=== PATIENT | male | born 1940 | race Caucasian/White ===

== ENCOUNTER 2020-05-23 12:11 | Emergency (ER) | payer MEDICARE, OTHER | END 2020-05-23 20:15 | disposition other institution (70) | LOC: FER 12:11 | DX: N17.9 Acute kidney failure, unspecified (principal); Z85.048 Personal history of other malignant neoplasm of rectum, rectosigmoid junction, and anus; Z85.46 Personal history of malignant neoplasm of prostate; Z88.2 Allergy status to sulfonamides; Z88.8 Allergy status to other drugs, medicaments and biological substances | CPT/HCPCS: 36415; 80053; 83735; 93005; J3475; J7030; J7050 ==

== ENCOUNTER 2020-09-08 06:32 | Emergency (ER) | payer MEDICARE, OTHER ==
[2020-09-08 07:02] LABS: BASOPHIL 1.4 % (0-2); EOSINOPHIL 2.5 % (0-7); HCT 30.6 % (42.0-52.0); HGB 9.6 g/dl (13.2-18.0); LYMPHOCYTE 25.4 % (15-48); MCH 27.8 pg (25.0-31.0); MCHC 31.4 g/dL (32.0-36.0); MCV 88.7 fL (78.0-100.0); MONOCYTE 2.5 % (0-12); MPV 11.4 fL (6.0-9.5); NEUTROPHIL 67.8 % (41-80); NRBC 0; PLT 533 K/uL (150-400); RBC 3.45 M/uL (4.70-6.00); RDW 17.9 % (11.5-14.0); WBC 5.2 K/uL (4.0-10.5)
[2020-09-08 07:24] LABS: ALBUMIN 3.3 g/dL (3.4-5.0); BILIRUBIN - TOTAL 0.4 mg/dL (0.2-1.0); CREATININE 1.84 mg/dL (0.67-1.17); GLOBULIN (CALCULATION) 4.9 g/dL; POTASSIUM 4.4 mmol/L (3.5-5.1); TOTAL PROTEIN 8.2 g/dL (6.4-8.2)
[2020-09-08 07:31] LABS: LACTIC ACID 2.2 mmol/L (0.4-1.9)
[2020-09-08 10:55] LABS: HCT 28.8 % (42.0-52.0)
== END 2020-09-08 13:50 | disposition other institution (70) ==
LOC: FER 06:32
PROVIDERS: Emergency Medicine
DX: A41.9 Sepsis, unspecified organism (principal); R65.21 Severe sepsis with septic shock; J69.0 Pneumonitis due to inhalation of food and vomit; J96.90 Respiratory failure, unspecified, unspecified whether with hypoxia or hypercapnia; N17.9 Acute kidney failure, unspecified; Z88.2 Allergy status to sulfonamides; Z88.8 Allergy status to other drugs, medicaments and biological substances
CPT/HCPCS: 36415; 71045; 80053; 83605; 83735; 84145; 85014; 85018; 85025; 86850; 86900; 86901; 87040; 93005; C9113; J2405; J2543; J3370; J7030; J7050

== ENCOUNTER 2020-12-01 22:39 | Inpatient (IN) | payer MEDICARE, OTHER ==
[~2020-12-01] VITALS: Ht 175.3 cm; Wt 49.4 kg
[2020-12-02 00:26] LABS: BASOPHIL 0.9 % (0-2); EOSINOPHIL 0.5 % (0-7); HCT 36.6 % (42.0-52.0); HGB 11.7 g/dl (13.2-18.0); LYMPHOCYTE 13.6 % (15-48); MCH 28.1 pg (25.0-31.0); MCV 87.8 fL (78.0-100.0); NEUTROPHIL 63.8 % (41-80); NRBC 0; PLT 491 K/uL (150-400); RBC 4.17 M/uL (4.70-6.00); RDW 17.2 % (11.5-14.0); WBC 11.1 K/uL (4.0-10.5)
[2020-12-02 00:38] LABS: MONOCYTE 20.4 % (0-12)
[2020-12-02 00:50] LABS: ALBUMIN 3.7 g/dL (3.4-5.0); ALKALINE PHOSHATASE 72 U/L (46-116); ALT 91 U/L (16-63); AST 47 U/L (15-37); BILIRUBIN - TOTAL 0.3 mg/dL (0.2-1.0); CHLORIDE 100 mmol/L (98-107); CO2 (BICARBONATE) 29 mmol/L (21-32); CREATININE 2.66 mg/dL (0.67-1.17); GLOBULIN (CALCULATION) 5.7 g/dL; GLUCOSE 137 mg/dL (74-106); MAGNESIUM 3.2 mg/dL (1.8-2.4); TOTAL PROTEIN 9.4 g/dL (6.4-8.2)
[2020-12-02 00:54] LABS: BUN >225 mg/dL (7-18); C-REACTIVE PROTEIN < 0.20 mg/dL (<=0.90)
[2020-12-02 00:56] LABS: CLARITY TURBID (CLEAR); COLOR YELLOW (YELLOW)
[2020-12-02 00:57] LABS: BILIRUBIN NEGATIVE (NEGATIVE); GLUCOSE (U) NORMAL (NORMAL)
[2020-12-02 00:58] LABS: BLOOD 2+ Ery/uL (NEGATIVE); SPECIFIC GRAVITY 1.015 (1.001-1.030); pH 6.5 (5.0-9.0)
[2020-12-02 00:59] LABS: NITRITE POSITIVE (NEGATIVE); PROTEIN 3+ mg/dL (NEGATIVE); UROBILINOGEN 0.2 mg/dL (0.2-1.0)
[2020-12-02 01:00] LABS: LEUKOCYTES 3+ Leu/uL (NEGATIVE)
[2020-12-02 01:01] LABS: PRO-BNP 469 pg/mL (<450)
[2020-12-02 01:02] LABS: AMORPHOUS URATES CRYSTALS LARGE; URINARY WBC TNTC
[2020-12-02 01:03] LABS: BACTERIA 2+
[2020-12-02 02:21] LABS: LACTIC ACID 1.2 mmol/L (0.4-1.9)
[2020-12-02 03:07] LABS: CORONAVIRUS 2019 SARS-COV-2 NEGATIVE (NEGATIVE); INFLUENZA A NAA NEGATIVE (NEGATIVE)
[2020-12-02 09:05] LABS: HCT 28.9 % (42.0-52.0); HGB 8.8 g/dL (13.2-18.0)
[2020-12-02 09:32] LABS: CREATININE 2.23 mg/dL (0.67-1.17); POTASSIUM 4.4 mmol/L (3.5-5.1)
[2020-12-02 15:14] LABS: CREATININE 2.29 mg/dL (0.67-1.17); POTASSIUM 4.8 mmol/L (3.5-5.1)
[2020-12-02 19:02] LABS: CREATININE 2.14 mg/dL (0.67-1.17); POTASSIUM 4.1 mmol/L (3.5-5.1)
[2020-12-02 19:49] LABS: HCT 25.4 % (42.0-52.0); HGB 7.9 g/dL (13.2-18.0)
[2020-12-03 00:12] LABS: CREATININE 2.16 mg/dL (0.67-1.17); POTASSIUM 4.1 mmol/L (3.5-5.1)
[2020-12-03 04:29] LABS: CREATININE 2.09 mg/dL (0.67-1.17); POTASSIUM 4.2 mmol/L (3.5-5.1)
[2020-12-03 08:40] LABS: BASOPHIL 1.1 % (0-2); EOSINOPHIL 2.2 % (0-7); HCT 29.7 % (42.0-52.0); LYMPHOCYTE 7.5 % (15-48); MCH 28.3 pg (25.0-31.0); MCHC 30.3 g/dL (32.0-36.0); MONOCYTE 10.7 % (0-12); NEUTROPHIL 77.8 % (41-80); NRBC 0; PLT 315 K/uL (150-400); RBC 3.18 M/uL (4.70-6.00); RDW 17.7 % (11.5-14.0); WBC 5.5 K/uL (4.0-10.5)
[2020-12-03 08:41] LABS: MCV 93.4 fL (78.0-100.0)
[2020-12-03 09:03] LABS: ALBUMIN 2.6 g/dL (3.4-5.0); BILIRUBIN - TOTAL 0.3 mg/dL (0.2-1.0); CREATININE 2.09 mg/dL (0.67-1.17); GLOBULIN (CALCULATION) 4.7 g/dL; POTASSIUM 3.9 mmol/L (3.5-5.1)
[2020-12-03 09:07] LABS: TOTAL PROTEIN 7.3 g/dL (6.4-8.2)
[2020-12-03 09:51] LABS: LACTIC ACID 1.5 mmol/L (0.4-1.9)
[2020-12-03 14:53] LABS: CREATININE 2.01 mg/dL (0.67-1.17); POTASSIUM 3.8 mmol/L (3.5-5.1)
[2020-12-03 19:25] LABS: CREATININE 1.95 mg/dL (0.67-1.17); POTASSIUM 3.9 mmol/L (3.5-5.1)
[2020-12-03 21:56] LABS: CREATININE 1.97 mg/dL (0.67-1.17); POTASSIUM 3.7 mmol/L (3.5-5.1)
[2020-12-04 05:29] LABS: BASOPHIL 0.9 % (0-2); EOSINOPHIL 5.5 % (0-7); HCT 29.3 % (42.0-52.0); HGB 8.9 g/dl (13.2-18.0); LYMPHOCYTE 17.1 % (15-48); MCH 28.1 pg (25.0-31.0); MCHC 30.4 g/dL (32.0-36.0); MCV 92.4 fL (78.0-100.0); MONOCYTE 20.7 % (0-12); MPV 10.3 fL (6.0-9.5); NRBC 0; PLT 313 K/uL (150-400); RBC 3.17 M/uL (4.70-6.00); RDW 17.9 % (11.5-14.0); WBC 4.3 K/uL (4.0-10.5)
[2020-12-04 05:31] LABS: NEUTROPHIL 55.3 % (41-80)
[2020-12-04 05:45] LABS: CREATININE 2.01 mg/dL (0.67-1.17); POTASSIUM 3.8 mmol/L (3.5-5.1)
[2020-12-04 16:37] LABS: CREATININE 1.91 mg/dL (0.67-1.17); POTASSIUM 3.7 mmol/L (3.5-5.1)
[2020-12-05 05:25] LABS: HCT 31.1 % (42.0-52.0); HGB 9.5 g/dl (13.2-18.0); MCH 27.9 pg (25.0-31.0); MCHC 30.5 g/dL (32.0-36.0); MCV 91.5 fL (78.0-100.0); MPV 10.6 fL (6.0-9.5); RBC 3.4 M/uL (4.70-6.00); RDW 18.2 % (11.5-14.0)
[2020-12-05 05:53] LABS: ALBUMIN 2.6 g/dL (3.4-5.0); BILIRUBIN - TOTAL 0.3 mg/dL (0.2-1.0); CREATININE 1.88 mg/dL (0.67-1.17); GLOBULIN (CALCULATION) 4.8 g/dL; POTASSIUM 4.2 mmol/L (3.5-5.1); TOTAL PROTEIN 7.4 g/dL (6.4-8.2)
[2020-12-05 06:06] LABS: MAGNESIUM 1.9 mg/dL (1.8-2.4)
[2020-12-05] MEDS ORDERED: DUONEB 2.5-0.5M1 AMP INH (11:16)
[2020-12-05] MEDS ORDERED: VOLTAREN **OUT50 MG TOP (11:17)
[2020-12-05] MEDS ORDERED: ATARAX25 MG PO (11:18)
[2020-12-05] MEDS ORDERED: HUMALOG100 UNIT/1 SC (11:20)
[2020-12-05] MEDS ORDERED: PROTONIX 40MG T40 MG IV (11:21)
[2020-12-05] MEDS ORDERED: XANAX0.25 MG PO (11:21)
[2020-12-05] MEDS ORDERED: OXY-IR 5MG5 MG PO (11:23)
[2020-12-05] MEDS ORDERED: TYLENOL W/CODEIN5 ML PEG (11:24)
[2020-12-05] MEDS ORDERED: ELIQUIS2.5 MG PO ×2 (11:25)
[2020-12-05] MEDS ORDERED: BABY DDROPS2.5 ML PEG (11:26)
[2020-12-05] MEDS ORDERED: VITAMIN B-121000 MC1 PO (11:27)
[2020-12-05] MEDS ORDERED: LOMOTIL1 EACH PO (11:28)
[2020-12-05] MEDS ORDERED: BACTROBAN NASAL1 GM TOP (11:29)
[2020-12-05] MEDS ORDERED: PROAMATINE5 MG PO (11:29)
[2020-12-05] MEDS ORDERED: VYZULTA5 ML EYEBOTH (11:29)
[2020-12-05] MEDS ORDERED: GATTEX5 MG SC (11:31)
[2020-12-06 06:22] LABS: BASOPHIL 0.8 % (0-2); EOSINOPHIL 6.8 % (0-7); HCT 26.2 % (42.0-52.0); HGB 8.3 g/dl (13.2-18.0); MCH 28.3 pg (25.0-31.0); MCHC 31.7 g/dL (32.0-36.0); MCV 89.4 fL (78.0-100.0); MONOCYTE 9.7 % (0-12); NEUTROPHIL 57.6 % (41-80); NRBC 0; PLT 187 K/uL (150-400); RBC 2.93 M/uL (4.70-6.00); RDW 17.8 % (11.5-14.0); WBC 7.9 K/uL (4.0-10.5)
[2020-12-06 06:44] LABS: ALBUMIN 2.5 g/dL (3.4-5.0); BILIRUBIN - TOTAL 0.2 mg/dL (0.2-1.0); CREATININE 1.74 mg/dL (0.67-1.17); MAGNESIUM 1.7 mg/dL (1.8-2.4); PHOSPHORUS 2.9 mg/dL (2.6-4.7); POTASSIUM 3.8 mmol/L (3.5-5.1); TOTAL PROTEIN 6.5 g/dL (6.4-8.2)
[2020-12-06 08:19] LABS: IRON % SATURATION 16.4 %SAT (20-50)
[2020-12-06 08:22] LABS: RETICULOCYTE COUNT 0.9 % (1.0-2.0)
[2020-12-06 09:20] LABS: FOLIC ACID (SERUM) 41.4 ng/mL (8.6-58.9)
--- NOTE | 2020-12-06 14:40 | NUR ---
12/06/20 Mr. Armas lives at home with his spouse. He is followed by [facility] and wishes to continue with their services. [facility] was notified via [facility] of admission. Pt has a hospital bed, rw, wc, and s. chair. - He is on the waiting list at [facility]
[2020-12-07 12:48] LABS: BASOPHIL 0.4 % (0-2); EOSINOPHIL 6.3 % (0-7); HCT 27.4 % (42.0-52.0); HGB 8.9 g/dl (13.2-18.0); LYMPHOCYTE 20.2 % (15-48); MCH 28.4 pg (25.0-31.0); MCHC 32.5 g/dL (32.0-36.0); MCV 87.5 fL (78.0-100.0); MONOCYTE 4.1 % (0-12); NEUTROPHIL 68.7 % (41-80); NRBC 0; PLT 166 K/uL (150-400); RBC 3.13 M/uL (4.70-6.00); RDW 17.1 % (11.5-14.0); WBC 9.5 K/uL (4.0-10.5)
[2020-12-07 13:05] LABS: ALBUMIN 2.7 g/dL (3.4-5.0); BILIRUBIN - TOTAL 0.1 mg/dL (0.2-1.0); BUN/CREAT RATIO (CALC) 50.3 RATIO; CREATININE 1.53 mg/dL (0.67-1.17); GLOBULIN (CALCULATION) 4.6 g/dL; POTASSIUM 4.3 mmol/L (3.5-5.1); TOTAL PROTEIN 7.3 g/dL (6.4-8.2)
--- NOTE | 2020-12-07 14:37 | NUR ---
12/07/20 M/M Chanda has requested SNF for short term c[place]de. They prefer [facility] and [facility] as a second choice. [facility] has a bed and are evaluating patient.
[2020-12-08 06:18] LABS: BASOPHIL 0.5 % (0-2); EOSINOPHIL 5.5 % (0-7); HCT 26.3 % (42.0-52.0); HGB 8.5 g/dl (13.2-18.0); MCH 28.1 pg (25.0-31.0); MCHC 32.3 g/dL (32.0-36.0); MCV 86.8 fL (78.0-100.0); MONOCYTE 3.4 % (0-12); MPV 12.1 fL (6.0-9.5); NEUTROPHIL 67.1 % (41-80); NRBC 0; PLT 157 K/uL (150-400); RBC 3.03 M/uL (4.70-6.00); RDW 17.1 % (11.5-14.0); WBC 8.7 K/uL (4.0-10.5)
[2020-12-08 06:21] LABS: ALBUMIN 2.7 g/dL (3.4-5.0); BILIRUBIN - TOTAL 0.2 mg/dL (0.2-1.0); BUN/CREAT RATIO (CALC) 50.3 RATIO; CREATININE 1.47 mg/dL (0.67-1.17); GLOBULIN (CALCULATION) 4.5 g/dL; MAGNESIUM 2.2 mg/dL (1.8-2.4); POTASSIUM 4.2 mmol/L (3.5-5.1); TOTAL PROTEIN 7.2 g/dL (6.4-8.2)
[2020-12-08 06:39] LABS: LYMPHOCYTE 23.4 % (15-48)
--- NOTE | 2020-12-08 13:21 | NUR ---
RD contacted by phone dietitians at both [facility] and [facility] (facilities patient recently d/c from) to gather EN order history. Information was confusing, however reports are patient was d/c home on TPN, transitioned to TF's of Osmolite 1.5; unclear when Pivot 1.5 was ordered. Discussed findings with TIFFANIE Ray: obtained phone # for [facility] office from patient's however no answer and no vm available. Full Nutrition Assessement placed in [facility] re: recommedations.
--- NOTE | 2020-12-08 14:06 | NUR ---
12/08/20 [facility] has declined patient for admission due to Magnessium infusions. [facility] continues to review. Ms. Armas does not have additional choices for placement. She said she will take Mr. Armas home if [facility] declines.
--- NOTE | 2020-12-08 14:23 | NUR ---
12/08/20 Ms. Armas is not interested in a LTACH.
[2020-12-09 05:21] LABS: BUN/CREAT RATIO (CALC) 51.3 RATIO; CREATININE 1.5 mg/dL (0.67-1.17); MAGNESIUM 2.4 mg/dL (1.8-2.4); POTASSIUM 4.1 mmol/L (3.5-5.1)
[2020-12-11 06:11] LABS: BASOPHIL 0.6 % (0-2); EOSINOPHIL 6.2 % (0-7); HCT 26.3 % (42.0-52.0); HGB 8.5 g/dl (13.2-18.0); LYMPHOCYTE 46.9 % (15-48); MCH 27.9 pg (25.0-31.0); MCHC 32.3 g/dL (32.0-36.0); MCV 86.2 fL (78.0-100.0); MONOCYTE 5.4 % (0-12); NEUTROPHIL 40.9 % (41-80); NRBC 0; PLT 147 K/uL (150-400); RBC 3.05 M/uL (4.70-6.00); RDW 17.1 % (11.5-14.0); WBC 4.7 K/uL (4.0-10.5)
[2020-12-11 06:45] LABS: ALBUMIN 2.9 g/dL (3.4-5.0); BILIRUBIN - TOTAL 0.2 mg/dL (0.2-1.0); BUN/CREAT RATIO (CALC) 45.9 RATIO; CREATININE 1.72 mg/dL (0.67-1.17); GLOBULIN (CALCULATION) 4.3 g/dL; MAGNESIUM 2.3 mg/dL (1.8-2.4); POTASSIUM 4.6 mmol/L (3.5-5.1); TOTAL PROTEIN 7.2 g/dL (6.4-8.2)
[2020-12-12 06:52] LABS: CREATININE 1.64 mg/dL (0.67-1.17)
[2020-12-12 06:56] LABS: ALBUMIN 2.8 g/dL (3.4-5.0); BILIRUBIN - TOTAL 0.2 mg/dL (0.2-1.0); GLOBULIN (CALCULATION) 4.8 g/dL; TOTAL PROTEIN 7.6 g/dL (6.4-8.2)
[2020-12-12 06:57] LABS: MAGNESIUM 2.3 mg/dL (1.8-2.4)
[2020-12-12] MEDS ORDERED: OXY-IR 5MG5 MG PO (09:10)
--- NOTE | 2020-12-12 15:26 | NUR ---
12/12/20 Patient was discharged home with Spouse and [facility] . [facility] arranged IV fluids, Magnsium infusion and change in tube feedings through [facility]. - Education was provided re: Hospice and [facility] services. Ms. Armas is not interested in Hospice at this time. She was provided with their telephone # and advised that Hospice will come to the home for an educational visit. - [facility] ([phone]) for Palliative Care. They said they will contact patient in January. - A reort was given to Dr. Gunn and Fide MS RN.
== END 2020-12-12 15:00 | disposition home health service (06) | DRG 698 ==
LOC: FER 22:39 → FTCU 12-04 09:01 → FMS 12-05 09:01
PROVIDERS: Emergency Medicine; Emergency Medicine Emergency Medical Services; Family Medicine; Internal Medicine; ADMIT Internal Medicine
DX: T83.598A Infection and inflammatory reaction due to other prosthetic device, implant and graft in urinary system, initial encounter (principal); A41.9 Sepsis, unspecified organism; G93.41 Metabolic encephalopathy; R65.20 Severe sepsis without septic shock; N30.00 Acute cystitis without hematuria; N17.9 Acute kidney failure, unspecified; R64 Cachexia; E87.1 Hypo-osmolality and hyponatremia; K91.2 Postsurgical malabsorption, not elsewhere classified; E46 Unspecified protein-calorie malnutrition; Z68.1 Body mass index [BMI] 19.9 or less, adult; E87.5 Hyperkalemia; Z20.822 Contact with and (suspected) exposure to COVID-19; N18.9 Chronic kidney disease, unspecified; E86.9 Volume depletion, unspecified; Z66 Do not resuscitate; L89.622 Pressure ulcer of left heel, stage 2; E83.42 Hypomagnesemia; B96.20 Unspecified Escherichia coli [E. coli] as the cause of diseases classified elsewhere; Z93.2 Ileostomy status; Z85.038 Personal history of other malignant neoplasm of large intestine; Z85.46 Personal history of malignant neoplasm of prostate; Z86.718 Personal history of other venous thrombosis and embolism; Z82.49 Family history of ischemic heart disease and other diseases of the circulatory system; Z90.6 Acquired absence of other parts of urinary tract; Z90.49 Acquired absence of other specified parts of digestive tract; Z88.2 Allergy status to sulfonamides; Z88.8 Allergy status to other drugs, medicaments and biological substances; Y83.2 Surgical operation with anastomosis, bypass or graft as the cause of abnormal reaction of the patient, or of later complication, without mention of misadventure at the time of the procedure
CPT/HCPCS: 36415; 71045; 80048; 80053; 81001; 82140; 82607; 82746; 83540; 83550; 83605; 83735; 83880; 84100; 84132; 84145; 84484; 85014; 85018; 85025; 86140; 87076; 87088; 87186; 93005; 94640; 97110; 97163; 97166; 97530; 97530-GP; 97535; C9113; J0610; J0696; J1170; J2270; J2405; J2543; J2550; J3010; J3475; J7030; J7070; J7120; Q0169; U0002

== ENCOUNTER 2021-06-07 06:22 | Inpatient (IN) | payer MEDICARE, OTHER ==
[~2021-06-07] VITALS: Ht 175.3 cm; Wt 62.4 kg
[~2021-06-07 06:22] MED LIST: ATARAX25 MG PO; BABY DDROPS2.5 ML PEG; BACTROBAN NASAL1 GM TOP; DUONEB 2.5-0.5M1 AMP INH; ELIQUIS2.5 MG PO; GATTEX5 MG SC; HUMALOG100 UNIT/1 SC; LOMOTIL1 EACH PO; OXY-IR 5MG5 MG PO; PROAMATINE5 MG PO; PROTONIX 40MG T40 MG IV; TYLENOL W/CODEIN5 ML PEG; VITAMIN B-121000 MC1 PO; VOLTAREN **OUT50 MG TOP; VYZULTA5 ML EYEBOTH; XANAX0.25 MG PO
[2021-06-07 07:47] LABS: BASOPHIL 0.6 % (0-2); HGB 7.7 g/dl (13.2-18.0); LYMPHOCYTE 9.7 % (15-48); MCH 25.2 pg (25.0-31.0); MCHC 29.6 g/dL (32.0-36.0); MONOCYTE 11.9 % (0-12); MPV 12.9 fL (6.0-9.5); NEUTROPHIL 71.3 % (41-80); NRBC 0.1; PLT 348 K/uL (150-400); RBC 3.06 M/uL (4.70-6.00); RDW 15.6 % (11.5-14.0)
[2021-06-07 07:52] LABS: WBC 16.4 K/uL (4.0-10.5)
[2021-06-07 08:05] LABS: BUN/CREAT RATIO (CALC) 43.7 RATIO; CREATININE 1.42 mg/dL (0.67-1.17)
[2021-06-07 08:25] LABS: CORONAVIRUS 2019 SARS-COV-2 NEGATIVE (NEGATIVE); INFLUENZA A NAA NEGATIVE (NEGATIVE)
[2021-06-07 09:53] LABS: BILIRUBIN NEGATIVE (NEGATIVE); BLOOD 2+ Ery/uL (NEGATIVE); CLARITY CLOUDY (CLEAR); COLOR YELLOW (YELLOW); GLUCOSE (U) NORMAL (NORMAL); LEUKOCYTES 3+ Leu/uL (NEGATIVE); NITRITE NEGATIVE (NEGATIVE); PROTEIN 1+ mg/dL (NEGATIVE); UROBILINOGEN 0.2 mg/dL (0.2-1.0)
[2021-06-07 09:59] LABS: URINARY WBC TNTC
[2021-06-07 10:01] LABS: BACTERIA 3+; SQUAMOUS EPITHELIAL CELLS RARE
[2021-06-07] MEDS ORDERED: NORMAL SALINE IV (11:49)
[2021-06-07] MEDS ORDERED: [UNRECOGNIZED DRUG - OTHER] IV (11:49)
[2021-06-07] MEDS ORDERED: XANAX0.25 MG PO (11:50)
[2021-06-07] MEDS ORDERED: XANAX0.25 MG GT (11:51)
[2021-06-07] MEDS ORDERED: [UNRECOGNIZED DRUG - OTHER] GT (11:52)
[2021-06-07] MEDS ORDERED: ELIQUIS2.5 MG GT (11:52)
[2021-06-07] MEDS ORDERED: ESOMEPRAZOLE MA40 MG GT (11:53)
[2021-06-07] MEDS ORDERED: IMODIUM2 MG GT (11:53)
[2021-06-07] MEDS ORDERED: PROAMATINE5 MG GT (11:53)
[2021-06-07] MEDS ORDERED: METHADONE GT (11:54)
[2021-06-07] MEDS ORDERED: SIMBRINZA 1%-0.28 ML OU (11:56)
[2021-06-07] MEDS ORDERED: VYZULTA5 ML OU (11:58)
[2021-06-07] MEDS ORDERED: B-125000 MC2 GT (11:58)
[2021-06-07] MEDS ORDERED: FREE WATER GT (11:59)
[2021-06-07] MEDS ORDERED: OXYCODONE HCL10 MG GT (12:00)
[2021-06-08 07:47] LABS: IRON % SATURATION 4.6 %SAT (20-50)
[2021-06-08 07:55] LABS: BASOPHIL 0.4 % (0-2); EOSINOPHIL 0.2 % (0-7); HCT 22.1 % (42.0-52.0); LYMPHOCYTE 2.2 % (15-48); MCH 24.9 pg (25.0-31.0); MCHC 29.4 g/dL (32.0-36.0); MCV 84.7 fL (78.0-100.0); MONOCYTE 2.6 % (0-12); MPV 12.6 fL (6.0-9.5); NEUTROPHIL 91.5 % (41-80); PLT 296 K/uL (150-400); RBC 2.61 M/uL (4.70-6.00); RDW 15.6 % (11.5-14.0)
[2021-06-08 08:03] LABS: HGB 6.5 g/dl (13.2-18.0)
[2021-06-08 08:04] LABS: WBC 8.1 K/uL (4.0-10.5)
[2021-06-08 08:15] LABS: BUN/CREAT RATIO (CALC) 39.9 RATIO; CREATININE 1.63 mg/dL (0.67-1.17); POTASSIUM 3.9 mmol/L (3.5-5.1)
[2021-06-09 06:41] LABS: BASOPHIL 0.7 % (0-2); EOSINOPHIL 5.1 % (0-7); HCT 26.1 % (42.0-52.0); HGB 7.7 g/dl (13.2-18.0); LYMPHOCYTE 11.2 % (15-48); MCH 25.1 pg (25.0-31.0); MCHC 29.5 g/dL (32.0-36.0); MONOCYTE 14.4 % (0-12); MPV 12.3 fL (6.0-9.5); NEUTROPHIL 66.7 % (41-80); NRBC 0.5; PLT 260 K/uL (150-400); RBC 3.07 M/uL (4.70-6.00); RDW 15.4 % (11.5-14.0); WBC 4.3 K/uL (4.0-10.5)
[2021-06-09 07:03] LABS: CREATININE 1.56 mg/dL (0.67-1.17); POTASSIUM 3.7 mmol/L (3.5-5.1)
[2021-06-10 06:28] LABS: BASOPHIL 0.5 % (0-2); EOSINOPHIL 6.8 % (0-7); HCT 26.5 % (42.0-52.0); LYMPHOCYTE 10.3 % (15-48); MCH 25.9 pg (25.0-31.0); MCHC 30.2 g/dL (32.0-36.0); MCV 85.8 fL (78.0-100.0); MONOCYTE 11.1 % (0-12); MPV 11.8 fL (6.0-9.5); NEUTROPHIL 70.8 % (41-80); NRBC 0.3; PLT 272 K/uL (150-400); RBC 3.09 M/uL (4.70-6.00); RDW 15.8 % (11.5-14.0); WBC 6.3 K/uL (4.0-10.5)
[2021-06-10 06:48] LABS: BUN/CREAT RATIO (CALC) 40.5 RATIO; CREATININE 1.53 mg/dL (0.67-1.17); POTASSIUM 3.3 mmol/L (3.5-5.1)
[2021-06-12 15:27] LABS: HCT 27.1 % (42.0-52.0); HGB 8.1 g/dl (13.2-18.0); MCH 25.8 pg (25.0-31.0); MCHC 29.9 g/dL (32.0-36.0); MCV 86.3 fL (78.0-100.0); MPV 11.5 fL (6.0-9.5); RBC 3.14 M/uL (4.70-6.00); RDW 16.6 % (11.5-14.0)
[2021-06-12 15:50] LABS: BUN/CREAT RATIO (CALC) 39.6 RATIO; CREATININE 1.54 mg/dL (0.67-1.17); MAGNESIUM 1.5 mg/dL (1.8-2.4); POTASSIUM 3.3 mmol/L (3.5-5.1)
[2021-06-13 06:22] LABS: BASOPHIL 0.5 % (0-2); EOSINOPHIL 3.1 % (0-7); HCT 25.7 % (42.0-52.0); HGB 7.7 g/dl (13.2-18.0); LYMPHOCYTE 20.1 % (15-48); MCH 25.8 pg (25.0-31.0); MCV 86.2 fL (78.0-100.0); MONOCYTE 2.7 % (0-12); NEUTROPHIL 73.1 % (41-80); NRBC 0; PLT 197 K/uL (150-400); RBC 2.98 M/uL (4.70-6.00); RDW 17.2 % (11.5-14.0)
[2021-06-13 06:31] LABS: WBC 8.8 K/uL (4.0-10.5)
[2021-06-13 06:50] LABS: BUN/CREAT RATIO (CALC) 40.3 RATIO; CREATININE 1.54 mg/dL (0.67-1.17); POTASSIUM 3.4 mmol/L (3.5-5.1)
== END 2021-06-13 16:55 | disposition home health service (06) | DRG 871 ==
LOC: FER 06:22 → FMS 10:00
PROVIDERS: Emergency Medicine; Internal Medicine; ADMIT Internal Medicine
PROC: 3E03329 Introduction of Other Anti-infective into Peripheral Vein, Percutaneous Approach (ICD-10-PCS; 2021-06-07)
PROC: 30233N1 Transfusion of Nonautologous Red Blood Cells into Peripheral Vein, Percutaneous Approach (ICD-10-PCS; principal; 2021-06-08)
DX: A41.9 Sepsis, unspecified organism (principal); L89.153 Pressure ulcer of sacral region, stage 3; J69.0 Pneumonitis due to inhalation of food and vomit; J18.9 Pneumonia, unspecified organism; E87.0 Hyperosmolality and hypernatremia; C18.9 Malignant neoplasm of colon, unspecified; N39.0 Urinary tract infection, site not specified; T83.598A Infection and inflammatory reaction due to other prosthetic device, implant and graft in urinary system, initial encounter; L89.620 Pressure ulcer of left heel, unstageable; L89.610 Pressure ulcer of right heel, unstageable; L89.890 Pressure ulcer of other site, unstageable; Z20.822 Contact with and (suspected) exposure to COVID-19; Z66 Do not resuscitate; G89.3 Neoplasm related pain (acute) (chronic); C61 Malignant neoplasm of prostate; F41.9 Anxiety disorder, unspecified; N18.30 Chronic kidney disease, stage 3 unspecified; D50.9 Iron deficiency anemia, unspecified; E83.42 Hypomagnesemia; Z74.01 Bed confinement status; Z90.6 Acquired absence of other parts of urinary tract; Z79.01 Long term (current) use of anticoagulants; Z79.899 Other long term (current) drug therapy; Z28.310 Unvaccinated for COVID-19
CPT/HCPCS: 36415; 36430; 71045; 71250; 80048; 81001; 82728; 83540; 83550; 83605; 83735; 84145; 84484; 85025; 86850; 86880; 86900; 86901; 86906; 86922; 87040; 87088; 93005; C9113; J0456; J1335; J2543; J2916; J3475; J7030; J7040; J7050; J7070; P9016; U0002

== ENCOUNTER 2021-06-16 15:54 | Inpatient (IN) | payer MEDICARE, OTHER ==
[~2021-06-16] VITALS: Ht 175.3 cm; Wt 68.1 kg
[~2021-06-16 15:54] MED LIST changes: +B-125000 MC2 GT; +ELIQUIS2.5 MG GT; +ESOMEPRAZOLE MA40 MG GT; +FREE WATER GT; +IMODIUM2 MG GT; +METHADONE GT; +NORMAL SALINE IV; +OXYCODONE HCL10 MG GT; +PROAMATINE5 MG GT; +SIMBRINZA 1%-0.28 ML OU; +VYZULTA5 ML OU; +XANAX0.25 MG GT; +[UNRECOGNIZED DRUG - OTHER] GT; +[UNRECOGNIZED DRUG - OTHER] IV
[2021-06-16 16:38] LABS: EOSINOPHIL 2.7 % (0-7); HCT 26.6 % (42.0-52.0); HGB 7.9 g/dl (13.2-18.0); MCH 25.6 pg (25.0-31.0); MCHC 29.7 g/dL (32.0-36.0); MCV 86.1 fL (78.0-100.0); MONOCYTE 4.9 % (0-12); MPV 13.3 fL (6.0-9.5); NEUTROPHIL 1.3 % (41-80); NRBC 0; PLT 185 K/uL (150-400); RBC 3.09 M/uL (4.70-6.00); RDW 18.5 % (11.5-14.0); WBC 4.1 K/uL (4.0-10.5)
[2021-06-16 16:39] LABS: LYMPHOCYTE 90.1 % (15-48)
[2021-06-16 16:51] LABS: ALBUMIN 2.2 g/dL (3.4-5.0); BILIRUBIN - TOTAL 0.8 mg/dL (0.2-1.0); BUN/CREAT RATIO (CALC) 41.8 RATIO; CREATININE 1.65 mg/dL (0.67-1.17); GLOBULIN (CALCULATION) 6.6 g/dL; POTASSIUM 3.7 mmol/L (3.5-5.1); TOTAL PROTEIN 8.8 g/dL (6.4-8.2)
[2021-06-16 17:16] LABS: CORONAVIRUS 2019 SARS-COV-2 NEGATIVE (NEGATIVE); INFLUENZA A NAA NEGATIVE (NEGATIVE)
[2021-06-16 17:59] LABS: BILIRUBIN NEGATIVE (NEGATIVE); BLOOD 2+ Ery/uL (NEGATIVE); CLARITY CLEAR (CLEAR); COLOR YELLOW (YELLOW); GLUCOSE (U) NORMAL (NORMAL); LEUKOCYTES TRACE Leu/uL (NEGATIVE); NITRITE NEGATIVE (NEGATIVE); PROTEIN 1+ mg/dL (NEGATIVE); SPECIFIC GRAVITY 1.015 (1.001-1.030); UROBILINOGEN 0.2 mg/dL (0.2-1.0)
[2021-06-16 18:07] LABS: BACTERIA 3+; URINARY WBC 20-50; YEAST PRESENT
[2021-06-17 04:31] LABS: BASOPHIL 2.3 % (0-2); EOSINOPHIL 4.7 % (0-7); HCT 23.9 % (42.0-52.0); LYMPHOCYTE 76.7 % (15-48); MCH 25.7 pg (25.0-31.0); MCHC 29.3 g/dL (32.0-36.0); MCV 87.9 fL (78.0-100.0); MPV 13.7 fL (6.0-9.5); NEUTROPHIL 9.3 % (41-80); NRBC 0; PLT 149 K/uL (150-400); RBC 2.72 M/uL (4.70-6.00); RDW 18.5 % (11.5-14.0)
[2021-06-17 05:20] LABS: BUN 64 mg/dL (7-18); C-REACTIVE PROTEIN > 18.00 mg/dL (<=0.90); CHLORIDE 111 mmol/L (98-107); CO2 (BICARBONATE) 17 mmol/L (21-32); CREATININE 1.89 mg/dL (0.67-1.17); GLUCOSE 133 mg/dL (74-106); POTASSIUM 3.9 mmol/L (3.5-5.1)
[2021-06-17 05:21] LABS: WBC 0.4 K/uL (4.0-10.5)
[2021-06-17 14:24] LABS: BASOPHIL 2.9 % (0-2); EOSINOPHIL 21.4 % (0-7); HCT 22.8 % (42.0-52.0); HGB 6.7 g/dl (13.2-18.0); LYMPHOCYTE 67.1 % (15-48); MCH 25.5 pg (25.0-31.0); MCHC 29.4 g/dL (32.0-36.0); MCV 86.7 fL (78.0-100.0); MONOCYTE 4.3 % (0-12); MPV 12.9 fL (6.0-9.5); NEUTROPHIL 4.3 % (41-80); NRBC 0; PLT 116 K/uL (150-400); RBC 2.63 M/uL (4.70-6.00); RDW 18.2 % (11.5-14.0)
[2021-06-17 14:35] LABS: WBC 0.7 K/uL (4.0-10.5)
[2021-06-18 04:02] LABS: BASOPHIL 2.7 % (0-2); HCT 15.7 % (42.0-52.0); LYMPHOCYTE 58.9 % (15-48); MCH 25.6 pg (25.0-31.0); MCHC 29.3 g/dL (32.0-36.0); MCV 87.2 fL (78.0-100.0); MONOCYTE 6.8 % (0-12); MPV 14.1 fL (6.0-9.5); NEUTROPHIL 5.6 % (41-80); NRBC 0; PLT 128 K/uL (150-400)
[2021-06-18 04:08] LABS: HGB 4.6 g/dl (13.2-18.0); WBC 0.7 K/uL (4.0-10.5)
[2021-06-18 04:29] LABS: INR 1.58 (0.9-1.2); PROTHROMBIN TIME 18.1 SECONDS (11.8-13.4)
[2021-06-18 04:30] LABS: PTT 44.5 SECONDS (24.4-34.7)
[2021-06-18 04:37] LABS: ALBUMIN 1.8 g/dL (3.4-5.0); BILIRUBIN - TOTAL 0.4 mg/dL (0.2-1.0); BUN/CREAT RATIO (CALC) 36.4 RATIO; CREATININE 2.09 mg/dL (0.67-1.17); GLOBULIN (CALCULATION) 5.8 g/dL; MAGNESIUM 2.3 mg/dL (1.8-2.4); POTASSIUM 3.4 mmol/L (3.5-5.1); TOTAL PROTEIN 7.6 g/dL (6.4-8.2)
[2021-06-18 04:48] LABS: D-DIMER 4.9 ug/mLFEU (0.00-0.41)
[2021-06-20 08:12] LABS: HIV AB/P24 AG SCREEN Non Reactive (Non Reactive)
== END 2021-06-18 13:35 | disposition other institution (70) | DRG 698 ==
LOC: FER 15:54 → FMS 18:17 → FTCU 18:17
PROVIDERS: Emergency Medicine; Nurse Practitioner Acute Care; ADMIT Allergy & Immunology Allergy
PROC: 3E03329 Introduction of Other Anti-infective into Peripheral Vein, Percutaneous Approach (ICD-10-PCS; principal; 2021-06-16)
PROC: 30233N1 Transfusion of Nonautologous Red Blood Cells into Peripheral Vein, Percutaneous Approach (ICD-10-PCS; 2021-06-18)
DX: T83.518A Infection and inflammatory reaction due to other urinary catheter, initial encounter (principal); L89.513 Pressure ulcer of right ankle, stage 3; A41.9 Sepsis, unspecified organism; R65.20 Severe sepsis without septic shock; G93.41 Metabolic encephalopathy; J96.91 Respiratory failure, unspecified with hypoxia; N17.9 Acute kidney failure, unspecified; E44.0 Moderate protein-calorie malnutrition; C78.7 Secondary malignant neoplasm of liver and intrahepatic bile duct; C78.02 Secondary malignant neoplasm of left lung; C78.01 Secondary malignant neoplasm of right lung; C77.2 Secondary and unspecified malignant neoplasm of intra-abdominal lymph nodes; C77.1 Secondary and unspecified malignant neoplasm of intrathoracic lymph nodes; C20 Malignant neoplasm of rectum; Z68.1 Body mass index [BMI] 19.9 or less, adult; Z20.822 Contact with and (suspected) exposure to COVID-19; L89.890 Pressure ulcer of other site, unstageable; L89.610 Pressure ulcer of right heel, unstageable; L89.45 Pressure ulcer of contiguous site of back, buttock and hip, unstageable; D70.9 Neutropenia, unspecified; R50.81 Fever presenting with conditions classified elsewhere; Z66 Do not resuscitate; L89.42 Pressure ulcer of contiguous site of back, buttock and hip, stage 2; L89.41 Pressure ulcer of contiguous site of back, buttock and hip, stage 1; L89.622 Pressure ulcer of left heel, stage 2; I49.3 Ventricular premature depolarization; D64.9 Anemia, unspecified; N18.30 Chronic kidney disease, stage 3 unspecified; Z28.310 Unvaccinated for COVID-19; Z86.711 Personal history of pulmonary embolism; Z86.718 Personal history of other venous thrombosis and embolism; Z79.899 Other long term (current) drug therapy; Z88.2 Allergy status to sulfonamides; Z88.8 Allergy status to other drugs, medicaments and biological substances
CPT/HCPCS: 36415; 36430; 36600; 71045; 71250; 80048; 80053; 81001; 82803; 83605; 83615; 83735; 83880; 84145; 85025; 85379; 85384; 85610; 85730; 86140; 86870; 86880; 86922; 86970; 86978; 87040; 87070; 87076; 87088; 87186; 87205; 87389; 93005; 94010; 94640; 94760; 94762; C9113; G0378; J0637; J1447; J1642; J1650; J1956; J2543; J3370; J3411; J3475; J7040; J7050; J7120; P9016; P9047; U0002